=== PATIENT | female | born 1985 | race Two or more races ===

== ENCOUNTER 2016-09-29 16:09 | Emergency (ER) | payer BC, OTHER ==
[2016-09-29 16:15] VITALS: TEMP 98.4
[2016-09-29] MEDS ORDERED: IBUPROFEN 600 MG TAB PO ONE (16:41)
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
[2016-09-29] MEDS ORDERED: HYDROCODONE/APAP 5/325 TAB ONE (17:39)
[2016-09-29] MEDS ORDERED: HYDROCODONE/APAP 5/325 TAB PO ONE (17:41)
[2016-09-29] MEDS ORDERED: HYDROCOD/APAP 5/325 PREPACK#6 BTL TAKEHOME ONE (17:42)
[2016-09-29 17:51] VITALS: BP 118/88; PULSE 72; RESP 16; O2SAT 95
== END 2016-09-29 17:51 | disposition home or self-care (01) ==
DX: S09.90XA Unspecified injury of head, initial encounter (principal); S32.010A Wedge compression fracture of first lumbar vertebra, initial encounter for closed fracture; S22.080A Wedge compression fracture of T11-T12 vertebra, initial encounter for closed fracture; S63.501A Unspecified sprain of right wrist, initial encounter; V80.02XA Occupant of animal-drawn vehicle injured by fall from or being thrown from animal-drawn vehicle in noncollision accident, initial encounter; Y92.89 Other specified places as the place of occurrence of the external cause; Y93.89 Activity, other specified